=== PATIENT | male | born 1955 | race Caucasian/White ===

== ENCOUNTER 2023-09-04 06:37 | Day surgery (SDC) | payer MEDICARE, BC ==
[2023-09-04] MEDS ORDERED: LACTATED RINGERS 1,000 ML IV ONE ×2 (06:39→08:23)
--- NOTE | 2023-09-04 07:20 | ANESTHESIA ---
Pre-Anesthesia VS, & Labs - Diagnosis screening - Procedure colonoscopy Vital Signs: Temp Pulse Resp BP Pulse Ox O2 Flow Rate 36.1 C L 64 17 131/82 H 97 09/04/23 06:39 09/04/23 06:39 09/04/23 06:39 09/04/23 06:39 09/04/23 06:39 Height: 5 ft 7 in Weight (kg): 77.8 kg Body Mass Index: 26.9 BMI Classification: Overweight - NPO Other (prep as directed) Home Medications and Allergies Home Medications: Ambulatory Orders No Known Home Medications 09/01/23 No Known Home Medications 09/01/23 Allergies/Adverse Reactions: Allergies Allergy/AdvReac Type Severity Reaction Status Date / Time No Known Drug Allergies Allergy Verified 09/01/23 15:58 Anes History & Medical History - Anesthetic History Anesthesia Complications: reports: No previous complications - Medical History Cardiovascular: reports: None Pulmonary: reports: Sleep apnea Gastrointestinal: reports: None Urinary: reports: None Musculoskeletal: reports: Osteoarthritis Endocrine/Autoimmune: reports: None Skin: reports: None Smoking Status: Never smoker History of Cancer?: No - Surgical History Orthopedic: reports: Other Exam General: Alert, Oriented x3 Dental: WNL Mouth Opening: Greater than 4 Fingerbreadths Neck Mobility: Normal Mallampati classification: II Thyromental Distance: greater than 6 cm Respiratory: Lungs clear Cardiovascular: Regular rate Plan Anesthesia Type: Total IV Consent for Procedure(s) Verified and Reviewed: Yes Code Status: Attempt Resuscitation ASA classification: 2-Mild systemic disease Is this case an emergency?: No
[2023-09-04] MEDS ORDERED: PROPOFOL 500 MG/50 ML 500 MG/50 ML VIAL ONE (07:34)
[2023-09-04 08:35] VITALS: O2SAT 98
[2023-09-04 08:46] VITALS: BP 112/74
--- NOTE | 2023-09-04 09:01 | ANESTHESIA POST OP EVALUATION ---
Anesthesia Post Eval - Post Anesthesia Eval Vitals: Last Vital Signs Temp 36.3 C L 09/04/23 08:45 Pulse 68 09/04/23 08:45 Resp 17 09/04/23 08:45 BP 112/74 09/04/23 08:45 Pulse Ox 98 09/04/23 08:45 O2 Flow Rate
== END 2023-09-04 06:38 | disposition home or self-care (01) ==
LOC: SDS 06:37
PROVIDERS: ATTEND Surgery
DX: Z12.11 Encounter for screening for malignant neoplasm of colon (principal); K57.30 Diverticulosis of large intestine without perforation or abscess without bleeding; K64.1 Second degree hemorrhoids
CPT/HCPCS: G0121; J7120

== ENCOUNTER 2024-03-25 10:37 | Outpatient (CLI) | payer MEDICARE, BC ==
[2024-03-25] MEDS ORDERED: iohexoL-300 100 ML VIAL ONE (11:07)
[2024-03-25] MEDS ORDERED: DIATRIZOATE MEGLU/DIATRIZO SOD 30 ML BOTTLE PO ONE (11:07)
[2024-03-25] MEDS: iohexoL-300 100 ML VIAL IVP ONE (13:32)
[2024-03-25] MEDS: DIATRIZOATE MEGLU/DIATRIZO SOD 30 ML BOTTLE PO ONE (13:33)
--- NOTE | 2024-03-25 15:50 | CT Report ---
PROCEDURE: Abdomen/Pelvis W INDICATIONS: L SIDED ABD PAIN CONTRAST: Omni 300 100ml TECHNIQUE: After the administration of intravenous contrast, a CT scan of the abdomen and pelvis was performed. Images were recorded and evaluated at appropriate window settings. Reformats: coronal and sagittal. F or radiation dose reduction, the following was used: automated exposure control, adjustment of mA and /or kV according to patient size. COMPARISON: None. FINDINGS: Image quality: Diagnostic. Lower chest: Unremarkable. Liver: Hepatic steatosis. Gallbladder: No radiopaque stones or wall thickening. Biliary tree: No intrahepatic or extrahepatic dilation, accounting for age. Spleen: No splenomegaly. Calcified granuloma. Pancreas: No pancreatic ductal dilation. Adrenals: No adrenal nodule. Kidneys and ureters: No hydronephrosis. No renal cystic lesion which requires follow up. No solid mas s. Stomach, bowel and peritoneum: No gastric or small bowel dilation. No abnormal wall thickening. No pa thologic free fluid. Diverticulosis without evidence of diverticulitis. Normal appendix. Lymph nodes: No central or retroperitoneal adenopathy. Vessels: No infrarenal aortic aneurysm. Patent portal vein. PELVIS Reproductive organs: Prostatomegaly. Bladder: No abnormal wall thickening, accounting for underdistention. Pelvic lymph nodes: No pelvic adenopathy by size criteria. Bones: No aggressive osseous abnormality. Degenerative changes of the spine. Other: Small left inguinal hernia containing fat. IMPRESSION: No findings to explain the patient's left-sided abdominal pain. Colonic diverticulosis without eviden ce of diverticulitis. No nephrolithiasis. Small left inguinal hernia containing fat. Reviewed by: Espinoza Goetz MD on 03/25/2024 3:48 PM PDT Approved by: Espinoza Goetz MD on 03/25/2024 3:48 PM PDT Station ID: [id number]
== END 2024-03-25 10:38 | disposition home or self-care (01) ==
LOC: DI 10:37
PROVIDERS: ATTEND Family Medicine
DX: R10.33 Periumbilical pain (principal); K57.30 Diverticulosis of large intestine without perforation or abscess without bleeding; K40.90 Unilateral inguinal hernia, without obstruction or gangrene, not specified as recurrent
CPT/HCPCS: 74177; Q9963; Q9967

== ENCOUNTER 2024-05-06 14:18 | Outpatient (CLI) | payer MEDICARE, BC ==
[~2024-05-06 14:18] MED LIST: GADOTERATE MEGLUMINE 10 MMOL/20 ML VIAL ONE
[2024-05-06 14:46] LABS: CREATININE 0.9 mg/dL (0.6-1.3)
[2024-05-06] MEDS: GADOTERATE MEGLUMINE 10 MMOL/20 ML VIAL IVP ONE (17:33)
--- NOTE | 2024-05-07 17:29 | MRI Report ---
PROCEDURE: Pelvis W/WO INDICATIONS: RISING PSA CONTRAST: clariscan 15ml TECHNIQUE: Coronal ultra fast SE, axial T1 FSE with fat saturation, 3-plane nonbreath-hold T2 FSE. After the ad ministration of contrast, dynamic axial, delayed axial and coronal ultra fast GE or 2-D spoiled GE wi th fat saturation through the pelvis. Optional diffusion weighted imaging and ADC may be performed. COMPARISON: None. No current PSA available FINDINGS: Image quality: Diffusion weighted and dynamic contrast enhanced images are diagnostic. Prostate: Gland size is 3.6 x 4.4 x 3.3 cm; ellipsoid gland volume is 27.2 mL. PSA Density: PSA not provided for calculation. Transitional zone heterogenous nodules are present, either well encapsulated or mostly encapsulated, compatible with PI-RADS 1 or 2 likely BPH nodules. Mildly T2 hypointense heterogenous striated appearance of the peripheral zone is commonly seen with c urrent or prior prostatitis, PI-RADS 2. Left apex lesion measures 10 x 6 x 6 mm (6/17, 8/15). DWI score 3. DCE negative. T2 score 3. PI RADS 3. The left seminal vesicle appears atrophic compared to the right, which appears within normal limits. Genitourinary system: Bladder appears unremarkable. Bowel and peritoneum: There is increased fecal loading. Colonic diverticula are present. No patholog ic ascites in the lower abdomen Nodes and vessels: No pathologic lymph nodes by size criteria. No aneurysmal vessel identified. Soft tissues: Small fat-containing left inguinal hernia Bones: Degenerative changes. IMPRESSION: Left apex peripheral zone prostate PI RADS 3 lesion. No high suspicion PI RADS 4 or 5 lesion identifi ed. The right seminal vesicle is unremarkable. Atrophic appearance of the left seminal vesicle of uncerta in etiology. Consider continued PSA and possible MRI surveillance, if intervention is not pursued. Other findings above. Reviewed by: Trevor Gardner MD on 05/07/2024 5:27 PM PDT Approved by: Trevor Gardner MD on 05/07/2024 5:27 PM PDT Station ID: [id number]
== END 2024-05-06 14:19 | disposition home or self-care (01) ==
LOC: LAB 14:18
PROVIDERS: ATTEND Urology
DX: R97.20 Elevated prostate specific antigen [PSA] (principal); N40.2 Nodular prostate without lower urinary tract symptoms; N50.89 Other specified disorders of the male genital organs
CPT/HCPCS: 36415; 82565